=== PATIENT | male | born 1975 | race Caucasian/White ===

== ENCOUNTER 2016-10-12 09:39 | Emergency (ER) | payer OTHER ==
[~2016-10-12] VITALS: Ht 162.6 cm; Wt 57.5 kg
[2016-10-12 09:49] VITALS: Ht 162.6 cm; Wt 57.5 kg
--- NOTE | 2016-10-12 11:20 | ERD ---
ER Documentation Chief Complaint Date/Time DATE: 10/12/16 TIME: 11:16 Chief Complaint ABD PAIN WITH N/V HPI This is a 41 year old male presenting to ER with abdominal pain and constipation 6 months. Patient states he has periumbilical abdominal pain for the past 6 months and pain worsens after having bowel movement. Patient last bowel movement was today. Patient states he has difficulty having bowel movement and is straining. Patient has not been seen by a medical provider. Patient does not have primary care provider. No nausea or vomiting. Patient also reports left hand pain for the past 2 months. Patient has pain when gripping anything with left hand and pressing on palmar aspect of left hand. No injury or trauma. No redness or bruising. No laceration. No obvious deformities. ROS All systems reviewed and are negative except as per history of present illness. Medications Home Meds Active Scripts Docusate Sodium* (Colace*) 100 Mg Capsule, 100 MG PO BID, #14 CAP Prov:JENNIFER WU NP 10/12/16 Polyethylene Glycol* (Miralax*) 17 Gm Powd.pack, 17 GM PO DAILY, #7 Prov:JENNIFER UW NP 10/12/16 Allergies Allergies: Coded Allergies: No Known Allergy (Unverified , 10/12/16) PMhx/Soc Medical and Surgical Hx: pt denies Medical Hx, pt denies Surgical Hx Hx Alcohol Use: No Hx Substance Use: No Hx Tobacco Use: No Smoking Status: Never smoker Physical Exam Vitals Vital Signs Date Time Temp Pulse Resp B/P Pulse Ox O2 Delivery O2 Flow Rate FiO2 10/12/16 14:10 98.3 10/12/16 09:49 98.0 71 16 104/65 97 Physical Exam Const: No acute distress, alert Head: Atraumatic Eyes: Normal Conjunctiva ENT: Normal External Ears, Nose and Mouth. Neck: Full range of motion..~ No meningismus. Resp: Clear to auscultation bilaterally Cardio: Regular rate and rhythm, no murmurs Abd: Soft, non tender, non distended. Normal bowel sounds. negative rebound tenderness, negative peritoneal signs. negative Ozuna sign. no McBurney point tenderness. Skin: No petechiae or rashes Back: No midline or flank tenderness Ext: No cyanosis, or edema Neur: Awake and alert Psych: Normal Mood and Affect Result Diagram: 10/12/16 1120 10/12/16 1120 Results 24 hrs Laboratory Tests Test 10/12/16 11:20 10/12/16 11:29 White Blood Count 8.310^3/ul Red Blood Count 5.0210^6/ul Hemoglobin 15.8g/dl Hematocrit 46.7% Mean Corpuscular Volume 93.0fl Mean Corpuscular Hemoglobin 31.5pg Mean Corpuscular Hemoglobin Concent 33.8g/dl Red Cell Distribution Width 13.0% Platelet Count 94844^3/UL Mean Platelet Volume 9.6fl Neutrophils % 54.5% Lymphocytes % 33.6% Monocytes % 8.3% Eosinophils % 2.2% Basophils % 1.0% Nucleated Red Blood Cells % 0.0/100WBC Neutrophils # (Manual) 4.510^3/ul Lymphocytes # 2.810^3/ul Monocytes # 0.710^3/ul Eosinophils # 0.210^3/ul Basophils # 0.110^3/ul Nucleated Red Blood Cells # 0.010^3/ul Sodium Level 148mmol/L Potassium Level 4.3mmol/L Chloride Level 102mmol/L Carbon Dioxide Level 28mmol/L Anion Gap 22 Blood Urea Nitrogen 11mg/dl Creatinine 0.91mg/dl Glucose Level 98mg/dl Calcium Level 10.1mg/dl Total Bilirubin 0.6mg/dl Direct Bilirubin 0.00mg/dl Indirect Bilirubin 0.6mg/dl Aspartate Amino Transf (AST/SGOT) 20IU/L Alanine Aminotransferase (ALT/SGPT) 21IU/L Alkaline Phosphatase 59IU/L Total Protein 8.7g/dl Albumin 4.9g/dl Globulin 3.80g/dl Albumin/Globulin Ratio 1.28 Bedside Urine pH (LAB) 6.0 Bedside Urine Protein (LAB) 1+ Bedside Urine Glucose (UA) Negative Bedside Urine Ketones (LAB) Trace Bedside Urine Blood Trace-intact Bedside Urine Nitrite (LAB) Negative Bedside Urine Leukocyte Esterase (L Negative Procedures/[place] [id number] Radiology Main Line: [phone] DIAGNOSTIC IMAGING REPORT Patient: RICO ROSS : 1975 Age: 41 Sex: M MR #: [id number] DOS: 10/12/16 1107 Ordering MD: JENNIFER WU NP Location: [facility] Room/Bed: PROCEDURE: XR Abdomen 1 View. CLINICAL INDICATION: Abdominal pain and constipation. TECHNIQUE: AP abdomen x-ray. COMPARISON: None. FINDINGS: Air and stool are seen scattered within the colon. No dilated loops of small bowel are observed. No organomegaly is identified. A few phleboliths are seen in the right pelvis. The osseous structures are intact. IMPRESSION: Nonspecific bowel gas pattern. If further characterization of the abdomen is needed CT should be considered. [place] [id number] Radiology Main Line: [phone] DIAGNOSTIC IMAGING REPORT Patient: RICO ROSS : 1975 Age: 41 Sex: M MR #: [id number] DOS: 10/12/16 1107 Ordering MD: JENNIFER WU NP Location: [facility] Room/Bed: PROCEDURE: XR left Hand. CLINICAL INDICATION: Palm pain TECHNIQUE: Three views of the left hand were obtained. COMPARISON: No prior studies are available for comparison. FINDINGS: There is no acute osseous or articular abnormality. No evidence for fracture. There is a healed post fracture deformity of the fifth distal phalanx. Bone mineral density is preserved. The articular surfaces are smooth without evidence of marginal erosions. The soft tissues are intact without evidence of calcifications. IMPRESSION: 1. No acute osseous abnormality. 2. Deformity of the fifth distal phalanx, likely sequelae of remote trauma. MDM: This is a 41-year-old male presenting to emergency department with periumbilical abdominal pain and constipation 6 months. Patient's last bowel movement was today however states he has difficulty having bowel movement and is straining. No nausea or vomiting. No active vomiting while in the ED. No fevers or chills. Patient is afebrile upon arrival to ED and vital signs are stable. Patient has not been seen by Primary care provider for this. Patient denies having primary care provider. Labs and urine ordered. KUB ordered. KUB reviewed by radiologist as Nonspecific bowel gas pattern. Patient also states he has left hand pain for the past 2 months. X-ray left hand reviewed by radiologist as no acute osseous abnormality. Deformity of the fifth distal phalanx. CBC shows no significant anemia or infection. CMP shows no significant electrolyte imbalance. Liver enzymes are normal. Lipase is normal. Urine is negative for acute infection. Differential diagnosis includes but not limited to acute appendicitis, diverticulitis, diverticulosis, bowel obstruction, constipation, infectious colitis, irritable bowel syndrome, inflammatory bowel disease, viral gastroenteritis, abdominal aortic aneurysm, food intolerance, celiac disease, UTI, pyelonephritis, nephrolithiasis, acute urinary retention or colorectal cancer. I doubt any emergent conditions such as appendicitis, diverticulitis, bowel obstruction, abdominal aortic aneurysm at this time due to normal vital signs and normal lab results. Patient is appropriate for outpatient management. Patient will be given prescription for MiraLAX and Colace. Instructed patient to follow-up with primary care provider in the next 2-3 days for reassessment and additional management. Return to ED for any high fever, chest pain, difficulty breathing, shortness breath, wheezing, vomiting, diarrhea, abdominal pain or any new or worsening symptoms. Patient verbalizes understanding. All questions answered at discharge. Macedonian translation used during this encounter. Departure Diagnosis: Primary Impression: Abdominal pain Abdominal location: generalized Qualified Code: R10.84 - Generalized abdominal pain Additional Impression: Constipation Constipation type: unspecified constipation type Qualified Code: K59.00 - Constipation, unspecified constipation type Condition: JENNIFER Brennan NP Oct 12, 2016 11:20
[2016-10-12 11:24] LABS: URINE BLOOD (Dip) POC Trace-intact (NEGATIVE)
[2016-10-12 12:16] LABS: BASOPHIL # 0.1 10^3/ul (0.0-0.1); EOSINOPHILS # 0.2 10^3/ul (0.0-0.5); EOSINOPHILS % 2.2 % (0.0-7.0); HEMATOCRIT 46.7 % (42.0-52.0); HEMOGLOBIN 15.8 g/dl (14.0-18.0); LYMPHOCYTES # 2.8 10^3/ul (0.8-2.9); LYMPHOCYTES % 33.6 % (15.0-51.0); MEAN CORPUSCULAR HEMOGLOBIN 31.5 pg (29.0-33.0); MEAN CORPUSCULAR HGB CONC 33.8 g/dl (32.0-37.0); MEAN PLATELET VOLUME 9.6 fl (7.4-10.4); MONOCYTE # 0.7 10^3/ul (0.3-0.9); MONOCYTES % 8.3 % (0.0-11.0); NEUTROPHILS % 54.5 % (39.0-77.0); PLATELET COUNT 271 10^3/UL (140-415); RED BLOOD COUNT 5.02 10^6/ul (4.70-6.10); WHITE BLOOD COUNT 8.3 10^3/ul (4.8-10.8)
[2016-10-12 12:40] LABS: ALBUMIN 4.9 g/dl (3.3-4.9); ALBUMIN/GLOBULIN RATIO 1.28; BILIRUBIN,INDIRECT 0.6 mg/dl (0-1.1); BILIRUBIN,TOTAL 0.6 mg/dl (0.2-1.3); CALCIUM 10.1 mg/dl (8.4-10.2); CREATININE 0.91 mg/dl (0.61-1.24); POTASSIUM 4.3 mmol/L (3.5-5.1); TOTAL PROTEIN 8.7 g/dl (6.1-8.1)
--- NOTE | 2016-10-12 13:00 | RADRPT ---
PROCEDURE: XR left Hand. CLINICAL INDICATION: Palm pain TECHNIQUE: Three views of the left hand were obtained. COMPARISON: No prior studies are available for comparison. FINDINGS: There is no acute osseous or articular abnormality. No evidence for fracture. There is a healed pos t fracture deformity of the fifth distal phalanx. Bone mineral density is preserved. The articular surfaces are smooth without evidence of marginal erosions. The soft tissues are intact without evid ence of calcifications. IMPRESSION: 1. No acute osseous abnormality. 2. Deformity of the fifth distal phalanx, likely sequelae of remote trauma. RPTAT: PP .Андрей Teran MD, MD Date Time Electronically viewed and signed by .Андрей Teran MD, on 10/12/2016 13:00 .d/
--- NOTE | 2016-10-12 13:03 | RADRPT ---
PROCEDURE: XR Abdomen 1 View. CLINICAL INDICATION: Abdominal pain and constipation. TECHNIQUE: AP abdomen x-ray. COMPARISON: None. FINDINGS: Air and stool are seen scattered within the colon. No dilated loops of small bowel are observed. No organomegaly is identified. A few phleboliths are seen in the right pelvis. The osseous structures are intact. IMPRESSION: Nonspecific bowel gas pattern. If further characterization of the abdomen is needed CT should be considered. RPTAT: AA .Glenn Kelley MD, MD Date Time Electronically viewed and signed by .Glenn Kelley MD, on 10/12/2016 13:03 .P/
[2016-10-12] MEDS ORDERED: POLY17PO6 PO (13:32)
[2016-10-12] MEDS ORDERED: DOCU-144 PO (13:32)
[2016-10-12 14:10] VITALS: TEMP 98.3
== END 2016-10-12 14:10 | disposition home or self-care (01) ==
LOC: FTE 09:39
DX: R10.84 Generalized abdominal pain (principal); K59.00 Constipation, unspecified
CPT/HCPCS: 36415; 73130; 74000; 80053; 81003; 85025; Z7502

== ENCOUNTER 2017-05-21 17:31 | Emergency (ER) | END 2017-05-21 18:50 | disposition left against medical advice (07) ==